=== PATIENT | male | born 1965 | race African-American/Black ===

== ENCOUNTER 2019-12-28 01:27 | Inpatient (IN) | payer OTHER ==
[~2019-12-28] VITALS: Ht 170.2 cm; Wt 76.2 kg
[2019-12-28] MEDS ORDERED: ACETAMINOPHEN 500MG TABLET PO ONE (02:45)
[2019-12-28 03:13] LABS: BASOPHILS % 0.7 % (0.0-2.0); EOSINOPHILS % 0.1 % (0.0-5.0); HEMATOCRIT. 47.4 % (42.0-52.0); LYMPHOCYTES % 28.8 % (20.0-50.0); MEAN CORPUSCULAR HEMOGLOBIN 30.3 pg (28.0-32.0); MEAN CORPUSCULAR VOLUME 89.6 fL (80.0-94.0); MEAN PLATELET VOLUME 9.1 fl (7.4-10.4); MONOCYTES % 10.1 % (2.0-8.0); NEUTROPHILS % 60.3 % (40.0-76.0); PLATELET 131 x1000/uL (130-400); RED BLOOD CELL COUNT 5.29 mill/uL (4.7-6.1); RED CELL DISTRIBUTION WIDTH 14.4 % (11.6-14.6)
[2019-12-28 03:21] LABS: CHLORIDE 106 mEq/L (98-107)
[2019-12-28] MEDS ORDERED: ASPIRIN 325MG EC TABLET PO NR (03:45)
[2019-12-28 04:25] LABS: CLARITY URINE CLEAR (CLEAR); COLOR URINE YELLOW (YELLOW); KETONES URINE NEGATIVE (NEGATIVE); LEUKOCYTE ESTERASE URINE NEGATIVE (NEGATIVE); NITRITE URINE NEGATIVE (NEGATIVE); OCCULT BLOOD URINE NEGATIVE (NEGATIVE); PH URINE 5.5 (4.5-8.0); PROTEIN URINE NEGATIVE (NEGATIVE); SPECIFIC GRAVITY URINE 1.005 (1.005-1.030); UROBILINOGEN URINE 0.2 E.U./dL (0.2-1.0)
[2019-12-28] MEDS ORDERED: VANCOMYCIN 1 G PREMIX 200 ML IV SCH (04:45)
[2019-12-28] MEDS ORDERED: PIPERACILLIN/TAZOBACTAM 3.375GM/50ML PREMIX IV ONE (04:45)
[2019-12-28] MEDS ORDERED: PIPERACILLIN/TAZ 3.375G PREMIX 50 ML IV NR (05:00)
[2019-12-28] MEDS ORDERED: ENOXAPARIN 80MG/0.8ML SYR SUBCUT SCH (05:15)
[2019-12-28 08:30] VITALS: BP 122/68
[2019-12-28] MEDS ORDERED: ONDANSETRON HCL 4MG/2ML INJ IV PRN (09:30)
[2019-12-28] MEDS ORDERED: ACETAMINOPHEN 325MG TABLET PO PRN (09:30)
[2019-12-28] MEDS ORDERED: DIPHENHYDRAMINE 50MG/ML VIAL IV PRN (09:30)
[2019-12-28] MEDS ORDERED: MORPHINE SULFATE 2 MG/ML CPJ (NOT FOR IM USE) IV PRN (09:30)
[2019-12-28] MEDS ORDERED: CLONIDINE 0.1MG TABLET PO PRN (09:30)
[2019-12-28 09:58] VITALS: BP 122/68
[2019-12-28 12:00] VITALS: BP 118/67
[2019-12-28] MEDS ORDERED: PNEUMOCOCCAL 23-VAL P-SAC VAC 0.5 ML IM ONE (12:00)
[2019-12-28 16:00] VITALS: BP 125/77
[2019-12-28] MEDS: DOCUSATE SODIUM 100MG CAPSULE PO SCH (16:27)
[2019-12-28 20:00] VITALS: BP 140/73
[2019-12-28 20:36] LABS: CREATINE KINASE MB FRACTION 2.2 ng/mL (0.5-3.6)
[2019-12-28] MEDS ORDERED: ZOLPIDEM TARTRATE 5MG TABLET PO PRN (21:00)
[2019-12-29 00:01] VITALS: BP 123/77
[2019-12-29 04:00] VITALS: BP 115/77
[2019-12-29 05:34] LABS: BASOPHILS % 0.6 % (0.0-2.0); EOSINOPHILS % 0.2 % (0.0-5.0); HEMATOCRIT. 47.5 % (42.0-52.0); LYMPHOCYTES % 45.5 % (20.0-50.0); MEAN CORPUSCULAR HEMOGLOBIN 30.4 pg (28.0-32.0); MEAN CORPUSCULAR VOLUME 90.3 fL (80.0-94.0); MEAN PLATELET VOLUME 9.4 fl (7.4-10.4); MONOCYTES % 9.7 % (2.0-8.0); PLATELET 123 x1000/uL (130-400); RED BLOOD CELL COUNT 5.26 mill/uL (4.7-6.1); RED CELL DISTRIBUTION WIDTH 14.2 % (11.6-14.6)
[2019-12-29 05:44] LABS: CHLORIDE 107 mEq/L (98-107)
[2019-12-29 05:51] LABS: LDL CHOLESTEROL 87 mg/dL (5-100)
[2019-12-29 05:52] LABS: HDL CHOLESTEROL 49 mg/dL (40-59)
[2019-12-29 05:53] LABS: CREATINE KINASE 206 IU/L (39-308)
[2019-12-29 05:55] LABS: CREATINE KINASE MB FRACTION 1.8 ng/mL (0.5-3.6)
[2019-12-29 08:00] VITALS: BP 130/83
[2019-12-29] MEDS: DOCUSATE SODIUM 100MG CAPSULE PO SCH (08:15)
[2019-12-29] MEDS ORDERED: ENOXAPARIN 40MG/0.4ML SYR SUBCUT SCH (09:00)
== END 2019-12-29 17:15 | disposition left against medical advice (07) | DRG 177 ==
LOC: ER 01:27 → 7EST 04:41 → EDBEDREQ 05:00 → EDBEDREQTM 05:00 → EDBEDREQSVC 05:00 → ENRESERV 07:24
PROVIDERS: ADMIT Internal Medicine; ATTEND Internal Medicine
DX: U07.1 COVID-19 (principal); I21.4 Non-ST elevation (NSTEMI) myocardial infarction; I51.7 Cardiomegaly; R55 Syncope and collapse; R50.9 Fever, unspecified; Z87.11 Personal history of peptic ulcer disease; Z79.899 Other long term (current) drug therapy
CPT/HCPCS: 36415; 71045; 80053; 80061; 81003; 82550; 82553; 82728; 83605; 83615; 84145; 84443; 84484; 85025; 85379; 85651; 86141; 87635; 93005; 99285; J1650; J2543; J3370